=== PATIENT | female | born 2000 | race Caucasian/White ===

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

== ENCOUNTER 2021-11-28 20:24 | Emergency (ER) | payer MEDICAID, SELFPAY ==
[2021-11-28 20:29] VITALS: BP 128/80; PULSE 86; RESP 18; TEMP 36.2; O2SAT 99
--- NOTE | 2021-11-28 20:53 | W.ED.GENAD ---
Discharge Plan Disposition Patient Disposition: HOME Condition: Good Discharge Details Clinical Impression: Urticarial rash, Dermatographia Primary Care Provider: Marybeth Mascorro ED Provider: Angelito Chris Home Meds and New Rx's Prescriptions: New loratadine 10 mg capsule 10 mg PO DAILY Qty: 30 0RF hydroxyzine HCl 25 mg tablet 25 mg PO TID Qty: 60 0RF prednisone 20 mg tablet 20 mg PO DAILY Qty: 42 0RF Rx Instructions: Take 3 tablets daily for 7 days, followed by 2 tablets daily for 7 days, followed by 1 tablet daily for 7 days. No Action Kyleena 17.5 mcg/24 hr (5 years) Intrauterine Device acetaminophen [Tylenol Extra Strength] 500 mg Tablet 500 mg PO QID PRN Discharge Instructions Instructions: Urticaria (ED) Additional Instructions: At this time you have urticaria like rash which is likely secondary to a skin hypersensitivity potentially brought about by the food that you ate a few days ago. I have sent prescriptions for you to your pharmacy on file. Please take them as directed. Please avoid any new soaps or foods. Please stop using the steroid cream. We will be placing referral with a new primary care provider, they will contact you for the appointment time for recheck. If you notice any worsening of your symptoms, or any new symptoms such as vomiting, diarrhea, fever, chills, shortness of breath, chest pain, numbness, weakness, or fainting , please return immediately to the emergency department for reevaluation. Please follow up with your primary care provider as soon as possible for reassessment and reevaluation. As always, it was a pleasure participating in your medical care today. Medical Decision Making This is a pleasant 21-year-old female with a past medical history of allergies to shellfish, who presents today for evaluation of a rash. Patient states that 5 days ago she had some food at a local [email or web address] restaurant, shortly thereafter she developed a mild itchy rash. She took some Benadryl and Benadryl cream, and this did not overly improve her symptoms. She also applied topical deco-cbp-kovlgec steroid ointment and this did not help her symptoms. 2 days later on Sunday she went to the urgent care and was prescribed 3 days of prednisone 50 mg each day, unfortunately since then the symptoms have continued and even spread slightly. Rash is primarily located now around the flanks bilaterally, the back, shoulders, proximal component of the thighs. She denies any vomiting or diarrhea. She denies any chest pain or significant shortness of breath. She denies any numbness or tingling or weakness. She denies ever having a rash like this before. She denies any changes in soaps or detergents, new pets or animals, or other new foods. She did take an oatmeal bath but this did not help. No other complaints at this time. No other modifying factors Plan physical exam demonstrates hive-like rash over the flanks bilaterally, with excoriation related hives over the shoulders back and anterior thighs. It almost appears to be dermatographia right. No oral lesions. No concerning red flags. No current clinical evidence of staph scalded skin syndrome, erythema multiforme, erythema migrans, toxic epidermal necrolysis, Hook-Dean syndrome, Kawasaki-like rash, meningococcemia, pemphigus vulgaris, or necrotizing fasciitis. At this time I do feel that the patient would benefit from a prolonged treatment phase of steroids, as well as antihistamines. Unfortunately since she had 3 days of total steroids already, I do not feel like an additional 2 would be sufficient. Because of this she will need a tapering dose. We will do a 3-week steroid taper to prevent renal/adrenal dysfunction. Additionally we will add loratadine daily for the next 2 weeks and Benadryl as needed. Patient does not have a PCP, so we will put a referral into case management for PCP for recheck, as well as potential need for dermatology/affiliate marketing specialist if her symptoms persist. Recommend continued bland diet, avoidance of any new reactive agents. Discussed red flags which to return. I have extensively reviewed the treatment plan and discharge instructions with the patient. I have addressed all patient concerns at this time. The patient was made aware of what symptoms to monitor for that would warrant a return to the emergency department. Discussed the plan with the patient, they demonstrate verbal understanding and agreement with our assessment and plan at this time. The documentation in this chart was dictated using [employer] dictation software. Please excuse any dictation errors. HPI General Date/Time Provider Initiated Documentation: 11/28/21 20:38. HPI Narrative: This is a pleasant 21-year-old female with a past medical history of allergies to shellfish, who presents today for evaluation of a rash. Patient states that 5 days ago she had some food at a local [email or web address] restaurant, shortly thereafter she developed a mild itchy rash. She took some Benadryl and Benadryl cream, and this did not overly improve her symptoms. She also applied topical tkpu-lgt-rhpfnlf steroid ointment and this did not help her symptoms. 2 days later on Sunday she went to the urgent care and was prescribed 3 days of prednisone 50 mg each day, unfortunately since then the symptoms have continued and even spread slightly. Rash is primarily located now around the flanks bilaterally, the back, shoulders, proximal component of the thighs. She denies any vomiting or diarrhea. She denies any chest pain or significant shortness of breath. She denies any numbness or tingling or weakness. She denies ever having a rash like this before. She denies any changes in soaps or detergents, new pets or animals, or other new foods. She did take an oatmeal bath but this did not help. No other complaints at this time. No other modifying factors Related Data Home Medications Medication Instructions Recorded Confirmed levonorgestrel 17.5 mcg/24 hrs 04/07/18 (5yrs) 19.5mg intrauterine device (Kyleena) acetaminophen 500 mg tablet 500 mg PO QID PRN 04/09/18 11/28/21 (Tylenol Extra Strength) hydroxyzine HCl 25 mg tablet 25 mg PO TID #60 tabs 11/28/21 loratadine 10 mg capsule 10 mg PO DAILY #30 caps 11/28/21 prednisone 20 mg tablet 20 mg PO DAILY #42 tabs 11/28/21 Previous Rx's Medication Instructions Recorded hydroxyzine HCl 25 mg tablet 25 mg PO TID #60 tabs 11/28/21 loratadine 10 mg capsule 10 mg PO DAILY #30 caps 11/28/21 prednisone 20 mg tablet 20 mg PO DAILY #42 tabs 11/28/21 Allergies Allergy/AdvReac Type Severity Reaction Status Date / Time shellfish derived Allergy Severe Other (See Unverified 11/28/21 20:34 Comment) General Stated Complaint: RashLesion JOSEMANUEL: 4 Review of Systems All systems reviewed & are unremarkable except as noted in HPI and below PFSH All Active Problems Urticarial rash (Acute) Dermatographia (Acute) Medical History Concussion 2-3 total, last 2011 Depression TMJ (dislocation of temporomandibular joint) Surgical History TMJ surgery 06/2014 Family History Grandfather Depression Grandmother Depression Maternal Aunt Depression Factor V deficiency Maternal Aunt - discovered at age 17. Clot in leg. Mom has had genetic counseling and it not a carrier. Maternal Aunt Bipolar and related disorder OTHER Heart disease CAD PGF at age 50 Hyperlipidemia Gandfather with familial hypercholesteremia Neoplasm Mother's second cousin dided at age 27 Great Aunt CA survivor Other Stroke Social History Smoking/Tobacco Use Status: Never Smoking risk assessment performed?: Yes Alcohol Intake: current Alcohol Intake frequency: holidays/special occasions only Alcohol type: beer Drug use: Occasionally Substance use type: marijuana Do you feel safe at home: Yes Do you feel safe in your relationship?: Yes Exam Narrative Exam Narrative: 1.Const: Well-nourished, Well-developed, appearing stated age 2.Eyes: PERRL, no conjunctival injection, and symmetrical lids. 3.ENT: Atraumatic external nose and ears. Moist MM. Neck: Symmetric, trachea midline, No thyromegaly. 4.CVS: +S1/S2, No murmurs or gallops. Peripheral pulses 2+ and equal in all extremities. Brisk capillary refill in all extremities. 5.RESP: Unlabored respiratory effort. Clear to auscultation bilaterally. No wheezes rales or rhonchi 6.GI: Soft, Nontender/Nondistended, No hepatosplenomegaly. No guarding or rebound. 7.MSK: Normocephalic/Atraumatic, Extremities w/o deformity or ttp No cyanosis or clubbing, Normal movement of all extremities 8.Skin: Patient demonstrates mild hive-like rash over the pressure of flanks bilaterally. She also has what appears to be mild dermatographia like scratching hives over her back and shoulders. There are no hives whatsoever under her bra, or places that she cannot reach. Negative Nikolsky sign. No large vesicles or bulla. No palpable purpura. No oral lesions. No mucosal lesions. No evidence of severe cellulitis. No evidence of vaccine preventable rash. 9.Neuro: sat tutor II-XII grossly intact. Sensation grossly intact, no focal neurologic deficits. 10.Psych: (AAO) x3. Appropriate mood and affect Course Vital Signs Vital signs: Vital Signs Temperature 36.2 C L 11/28/21 20:29 Pulse 86 11/28/21 20:29 Respiratory Rate 18 11/28/21 20:29 Blood Pressure 128/80 11/28/21 20:29 Pulse Oximetry 99 11/28/21 20:29 Temperature 36.2 C L 11/28/21 20:29 Temperature Source Skin 11/28/21 20:29 Pulse 86 11/28/21 20:29 Respiratory Rate 18 11/28/21 20:29 Respiratory Effort Non-Labored 11/28/21 20:35 Blood Pressure 128/80 11/28/21 20:29 Pulse Oximetry 99 11/28/21 20:29 Pain Level 7 11/28/21 20:29 PAWSS Have you Been Recently Intoxicated or Drunk Within the Last 30 days?: No Have you Ever Experienced Previous Episodes of Alcohol Withdrawal?: No Have you ever Experienced Withdrawal Seizures?: No Have you ever Experienced Delirium Tremens(DT)s?: No Have you ever undergone Alcohol Rehabilitation Treatment (i.e, inpt ot outpatient treatment programs)?: No Have you ever Experienced Blackouts?: No Have you ever Combined Alcohol with other Downers within the last 90 days?: No Have you ever Combined Alcohol with any other Substance of Abuse during the last 90 days?: No Positive Blood Alcohol level on Presentation? [PCS.BAL]: No Evidence of Increased Autonomic Activity (i.e. HR>120, tremor, sweating, agitation, nausea)?: No Result: 0
--- NOTE | 2021-11-28 20:56 | NUR.NOTE ---
Referral to Care Management to establish pcp for 1-2 week f/u for urgent rash.Nursing Note:
[2021-11-28] MEDS: Loratidine 10 MG TAB PO (21:05)
[2021-11-28] MEDS: hydrOXYzine HCL 25 MG TAB PO (21:06)
[2021-11-28] MEDS: predniSONE 20 MG TAB 60 MG PO (21:06)
== END 2021-11-28 21:10 | disposition home or self-care (01) ==
PROVIDERS: Emergency Provider Student in an Organized Health Care Education/Training Program
DX: L50.3 Dermatographic urticaria (principal); Z91.013 Allergy to seafood
CPT/HCPCS: 99283; 99284; J7512

== ENCOUNTER 2022-03-12 08:58 | Emergency (ER) | payer MEDICAID, SELFPAY ==
[2022-03-12 09:01] VITALS: BP 118/73; PULSE 75; RESP 18; TEMP 36.7; O2SAT 98
--- NOTE | 2022-03-12 10:13 | ED.GENADUL_ITS ---
Discharge Plan Disposition Patient Disposition: Home Condition: Stable Discharge Details Clinical Impression: Pharyngitis Primary Care Provider: SHENA VAN ED Provider: Nile Salamanca Home Meds and New Rx's Prescriptions: Continued loratadine 10 mg capsule 10 mg PO DAILY Qty: 30 0RF escitalopram oxalate 5 mg tablet 1 tab PO DAILY Label Comments: TAKE ONE TABLET BY MOUTH EVERY MORNING Kyleena 17.5 mcg/24 hr (5 years) Intrauterine Device acetaminophen [Tylenol Extra Strength] 500 mg Tablet 500 mg PO QID PRN Discharge Instructions Instructions: Pharyngitis (ED) Additional Instructions: Rapid strep, flu, COVID all negative. Strep culture is pending. Likely viral syndrome, no clear indication to initiate antibiotics. A single dose of Decadron was given here in the ER. Continue nztv-ceh-nvucnls medications as directed for symptomatic control. Continue your salt water gargles as tolerated. Watch for new or worsening symptoms and return to the ER for any concerns. Lastly, please contact your primary care provider tomorrow to discuss your ER visit, ongoing symptoms, potential need for outpatient reevaluation if your symptoms not improving with conservative measures. Medical Decision Making 21-year-old female, denies significant past medical history, presents with URI- like symptoms for the past couple of days. Clinically she appears well, n ontoxic. Afebrile. Lungs clear to auscultation. Likely viral syndrome. Pharynx with mild erythema and exudates. No evidence of abscess. Airway is patent. No trismus. Given her pharyngitis will obtain a rapid strep. We will also obtain a rapid COVID and flu Rapid strep negative. Culture pending COVID and flu negative Discussed findings with patient. Likely viral syndrome, will need to treat with bwop-rmt-jtbqxxy medications for symptomatic control. We will provide a single dose of p.o. Decadron Standard discharge and return precautions were provided. Patient understands, is agreeable to this plan, and has no additional questions or concerns upon discharge. This documentation was generated using [employer] system, please disregard any oddities of phrase or misspellings. Medical Records Medical records reviewed: Yes I reviewed the patient's medical records. Lab Data Lab results reviewed: Yes I reviewed the patient's lab results. Labs: 03/12/22 09:05 Tonsil - Not Specified Group A Streptococcus Culture - Pend ing HPI General Mode of arrival: ambulatory . Date/Time Provider Initiated Documentation: 03/12/22 09:09 . Limitations to Documentation: no limitations . Information obtained by: patient . History of Present Illness 21 year old F presents to the emergency department with the chief complaint of sore throat, described as moderate, with intensity rated at 4. Quality is described as aching, and is localized to the neck (Throat). Patient reports no radiation. Patient started experiencing this day(s) (2) and it has been constant. No relieving factors improve symptom(s), No exacerbating factors reported . Patient notes headaches and other (Nasal congestion); denies fever/chills and nausea/vomiting. Patient did receive the following treatments prior to arrival, none Related Data Home Medications Medication Instructions Recorded Confirmed levonorgestrel 17.5 mcg/24 hrs 04/07/18 (5yrs) 19.5mg intrauterine device (Kyleena) acetaminophen 500 mg tablet 500 mg PO QID PRN 04/09/18 03/12/22 (Tylenol Extra Strength) loratadine 10 mg capsule 10 mg PO DAILY #30 caps 11/28/21 03/12/22 escitalopram oxalate 5 mg tablet 1 tab PO DAILY 03/12/22 03/12/22 Previous Rx's Medication Instructions Recorded loratadine 10 mg capsule 10 mg PO DAILY #30 caps 11/28/21 Allergies Allergy/AdvReac Type Severity Reaction Status Date / Time shellfish derived Allergy Severe Other (See Unverified 03/12/22 09:07 Comment) General Stated Complaint: Sorethroat JOSEMANUEL: 4 Review of Systems Constitutional Constitutional: Denies fever(s) ENT Ears, Nose, Mouth, and Throat: Reports nasal congestion and Reports sore throat Cardiovascular Cardiovascular: Denies chest pain and Denies dyspnea Respiratory Respiratory: Denies cough and Denies dyspnea Gastrointestinal Gastrointestinal: Denies abdominal pain, Denies nausea and Denies vomiting Musculoskeletal Musculoskeletal: Denies myalgias Integumentary/Breasts Skin/Breast: Denies rash PFSH All Active Problems (Updated 03/12/22 @ 10:27 by JASPREET French) Pharyngitis (Acute) Medical History (Updated 03/12/22 @ 10:27 by JASPREET French) Concussion 2-3 total, last 2011 Depression TMJ (dislocation of temporomandibular joint) Surgical History TMJ surgery 06/2014 Family History Grandfather Depression Grandmother Depression Maternal Aunt Depression Factor V deficiency Maternal Aunt - discovered at age 17. Clot in leg. Mom has had genetic counseling and it not a carrier. Maternal Aunt Bipolar and related disorder OTHER Heart disease CAD PGF at age 50 Hyperlipidemia Gandfather with familial hypercholesteremia Neoplasm Mother's second cousin dided at age 27 Great Aunt CA survivor Other Stroke Social History Smoking/Tobacco Use Status: Never Smoking risk assessment performed?: Yes Alcohol Intake: current Alcohol Intake frequency: holidays/special occasions only Alcohol type: beer Drug use: Occasionally Substance use type: marijuana Do you feel safe at home: Yes Do you feel safe in your relationship?: Yes Exam Const General: cooperative, healthy appearing, comfortable and no acute distress Orientation: alert and awake [facility] Head: normal to inspection, normocephalic and atraumatic Ears: external ears normal, TM's normal bilaterally and EAC's normal General nose exam: external nose normal Face and sinus: normal facial exam Mouth: oral mucosae normal and moist mucous membranes Teeth and gingiva: dentition normal Throat: tonsils normal, uvula midline, no peritonsillar masses and posterior oropharynx abnormal erythema and exudates Eyes General: appearance normal, both eyes and all related structures Conjunctivae: conjunctivae normal Neck Neck: normal visual inspection, full ROM, no lymphadenopathy, no meningeal signs, trachea midline, supple and nontender Resp Effort & Inspection: normal respiratory effort and able to speak in complete sentences Auscultation: clear to auscultation bilaterally Cardio Rate: regular rate Rhythm: regular rhythm Skin General skin exam: no rashes or lesions noted Neuro General: patient alert, patient awake, moves all extremities and no focal motor deficits Sensory Exam: no sensory deficits noted Psych Appearance: grossly normal Mental Status: mental status grossly normal Course Vital Signs Vital signs: Vital Signs Temperature 36.7 C 03/12/22 09:01 Pulse 75 03/12/22 09:01 Respiratory Rate 18 03/12/22 09:01 Blood Pressure 118/73 03/12/22 09:01 Pulse Oximetry 98 03/12/22 09:01 Temperature 36.7 C 03/12/22 09:01 Pulse 75 03/12/22 09:01 Respiratory Rate 18 03/12/22 09:01 Respiratory Effort Non-Labored 03/12/22 09:05 Blood Pressure 118/73 03/12/22 09:01 Blood Pressure Position Sitting 03/12/22 09:01 Pulse Oximetry 98 03/12/22 09:01 Oxygen Delivery Method Room Air 03/12/22 09:01 Oxygen Flow Rate 0 03/12/22 09:01 Pain Level 5 03/12/22 09:01 Lab/Test Results Lab/Test Results: 03/12/22 09:05 Tonsil - Not Specified Group A Streptococcus Culture - Pending POC Strep Test-ROCKY(Rapid) Start: 03/12/22 09:09 Freq: .Rapid Strep Test Status: Active Protocol: Document 03/12/22 09:17 BEATA (Rec: 03/12/22 09:17 BEATA [id number]) Strep test-ROCKY(Rapid)-POC POC-Strep test-ROCKY (Rapid) Negative POC-Strep test-ROCKY (Rapid) Negative
[2022-03-12] MEDS: Dexamethasone 4 MG TAB 10 MG PO (10:35)
== END 2022-03-12 10:39 | disposition home or self-care (01) ==
PROVIDERS: Emergency Provider Physician Assistant; PCP Nurse Practitioner Family
DX: J02.9 Acute pharyngitis, unspecified (principal)
CPT/HCPCS: 87880; 99283; 87081; J8540

== ENCOUNTER 2022-03-16 11:25 | Outpatient (CLI) | payer MEDICAID, SELFPAY ==
[2022-03-16 11:51] LABS: Abs Immature Grans 0.02 10^3/uL (0.0-0.06); Absolute Basophil Count 0.02 10^3/uL (0.0-0.2); Absolute Eosinophil Count 0.11 10^3/uL (0.0-0.7); Absolute Lymphocyte Count 1.36 10^3/uL (1.2-3.4); Absolute Monocyte Count 0.75 10^3/uL (0.1-0.8); Absolute Neutrophil Count 5.74 10^3/uL (1.2-6.7); Basophils % 0.3; Eosinophils % 1.4; HCT 38.9 % (36.0-46.0); Immature Grans % 0.3; MCH 29.7 pg (27.0-33.0); MCHC 33.4 % (32.0-36.0); MCV 89 fL (80-95); MPV 10.3 fL (8.0-11.0); Monocytes % 9.4; Neutrophils % 71.6; Platelet Count 231 10^3/uL (130-400); RBC 4.38 10^6/uL (3.93-5.22); RDW 11.5 % (11.7-14.6); RDW-SD 37.7 fL
[2022-03-16 11:59] LABS: Mono Screening Negative (Negative)
== END 2022-03-16 11:26 | disposition home or self-care (01) ==
LOC: LBO 11:25
PROVIDERS: PCP Nurse Practitioner Family; Visit Provider Family Medicine
DX: J03.90 Acute tonsillitis, unspecified (principal)
CPT/HCPCS: 36415; 85025; 86308